=== PATIENT | male | born 1985 | race Caucasian/White ===

== ENCOUNTER 2016-04-26 06:32 | Emergency (ER) | payer OTHER ==
[~2016-04-26] VITALS: Ht 177.8 cm; Wt 76.7 kg
[2016-04-26] MEDS ORDERED: FIORICET,ESG1 TABLET PO (08:37)
[2016-04-26 08:50] VITALS: BP 136/72
== END 2016-04-26 08:51 | disposition home or self-care (01) ==
LOC: EME 06:32
DX: R51 Headache (principal)
CPT/HCPCS: 99281; 99283; J1200; J1885; J2765; J7030